=== PATIENT | male | born 1975 | race Caucasian/White ===

== ENCOUNTER → 2016-03-12 | Outpatient (CLI) | payer BC, OTHER ==
[~2016-03-12] VITALS: Ht 180.3 cm; Wt 132.5 kg
[~2016-03-12] MED LIST: LISI-461 PO; OXYC1TAB3 PO
[2016-03-12 15:09] VITALS: BP 125/86; PULSE 73; Ht 180.3 cm; Wt 132.5 kg
== END | disposition home or self-care (01) ==
LOC: C.NEUR 14:47
PROVIDERS: ATTEND Family Medicine
DX: G47.33 Obstructive sleep apnea (adult) (pediatric) (principal); E66.9 Obesity, unspecified; G47.00 Insomnia, unspecified

== ENCOUNTER → 2016-12-03 | Outpatient (CLI) | payer OTHER, BC ==
[~2016-12-03] MED LIST changes: -OXYC1TAB3 PO
--- NOTE | 2016-12-03 12:28 | DIAGNOSTIC IMAGING REPORT ---
LEFT FOURTH FINGER 3 VIEWS CLINICAL HISTORY: Left fourth finger pain status post trauma COMPARISON: None. DISCUSSION: No fractures or dislocations are visualized. IMPRESSION: No fractures identified. Electronically signed by: Chance Mccain M.D. 12/03/2016 12:26 PM Dictated Date/Time: 12/03/2016 12:25 PM
== END | disposition home or self-care (01) ==
LOC: C.RAD1850 11:54
PROVIDERS: ATTEND Nurse Practitioner Adult Health
DX: M79.645 Pain in left finger(s) (principal)

== ENCOUNTER → 2017-03-17 | Outpatient (CLI) | payer OTHER ==
[~2017-03-17] VITALS: Ht 180.3 cm; Wt 107.0 kg
[2017-03-17 16:03] VITALS: BP 136/86; PULSE 62; Ht 180.3 cm; Wt 107.0 kg
== END | disposition home or self-care (01) ==
LOC: C.NEUR 13:42
PROVIDERS: ATTEND Physician Assistant
DX: G47.33 Obstructive sleep apnea (adult) (pediatric) (principal)

== ENCOUNTER → 2017-03-21 | Outpatient (CLI) | payer OTHER ==
--- NOTE | 2017-03-22 07:46 | PAP/PSG TECHNICIAN REPORT ---
[facility] Docking Saw Operator Polysomnogram Report Study name: None Report date: 03/22/2017 Study date: 03/21/2017 Referring Physician: DR. PASTRANA Name: ERWIN LEZAMA Interpreting Physician: Shayla Date of : 1975 Docking Saw Operator: Janeth Cabral, PSGT. Sex: Male Age: 42 StudyType: PSG Weight: 0 lbs Height: 42 years, Height 5' 11" Neck Circum:17 inches BMI: Medications: Atrovastatin Calcium 20 mg, Lisinopril 20 mg, Zolpidem Tartrate 10 mg. Patient History 42 YR. MALE PRESENTS TO THE SLEEP LAB FOR A SPLIT NIGHT STUDY >7. PATIENT STATES PAULINA HE IS POST BYPASS SURGERY -67 LBS. HE IS ON A RATE OF 8 CM WITH NASAL PILLOWS.PATIENT STATES THAT HE FEELS THE PRESSURE IS TO HIGH CAUSING HIS MOUTH TO"BLOW OPEN", HIS GOAL IS TO LOSE ENOUGH WEIGHT TO "GET OFF THE C-PAP. Parameters Monitored NPSG: E1-M2, E2-M1, Fp1-M2, Fp2-M1, F3-M2, F4-M2, F4-M1, C3-M2, C4-M2, C4-M1, O1-M2, O2-M2, O2-M1, T3-M2, T4-M1, P3-M2, P4-M1, CHIN1, CHIN2, HR, EKG, Legs, PFLOW, SNOR, FLOW, CFLOW, Tidal Volume, THOR, ABDO, SpO2, PLTH, CPRESS, ETCO2 Wave, ETCO2, pH Sleep Architecture Sleep Stages Time at Lights Off 8:50:44 PM STAGES Time (min.) TST (%) Time at Lights On 5:20:44 AM Wake 39.5 -- Total Recording Time (TRT) 511.50 min. N1 5.0 1 Total Sleep Period (TSP) 480.0 min. N2 268.0 57 Total Sleep Time (TST) 470.5min. N3 49.0 10 Awake Time 41.0 min. REM 148.5 32 Wake after Sleep Onset 9.5 min. Sleep Efficiency (SE) 92 % Sleep Onset Latency (RC) 30.0 min. Number of Stage 1 Shifts None Awakenings 3 Stage Changes 33 Number of REM periods 9 REM 148.5 32 REM Latency 57.0 min. NREM 322.0 68 Body Position Analysis Supine Right Left Side Prone Vertical Total Sleep Time (min.) 171.8 215.9 103.5 319.36 0.0 0.0 Total Sleep Time (%) 32% 46% 22% 68 0% N/A% Total Sleep Time REM (min.) 25.4 75.5 47.6 None 0.0 0.0 Total Sleep Time NREM (min.) 125.7 140.4 55.8 None 0.0 0.0 Intermittent Wake (min.) 20.7 14.3 4.5 None 0.0 0.0 Total Sleep Period (%) 33% None None None None None Arousals Myoclonus (PLM) * Events Count Index Events Count Index Spontaneous 47 6 Events Awake (PLMW) 2 3.0 Respiratory 1 0.1 Events Asleep w/ Arousal (PLMA) 8 1.0 PLM 8 1 Events Asleep w/o Arousal (PLMS) 101 12.9 Snoring 3 0 Total Asleep 109 13.9 Total 59 8 Total 111 13 Respiratory Analysis * CA OA MA CH H RERA Total Count 0 0 0 0 18 0 18 Index 0.0 0.0 0.0 0 2.3 0 2.3 Mean Duration 0.0 0.0 0.0 0.00 18.3 0.0 18.3 Longest Duration 0.0 0.0 0.0 0.00 0.0 0.0 37.7 Respiratory Event Summary Total Supine ~Supine Right Left Prone REM NREM Apneas Count 0 0 0 0 0 N/A 0 0 Index 0.0 0 0 0.0 0.0 N/A 0 0 Hypopneas (4% Desat) Count 18 3 15 15 0 N/A 10 8 Index 2.3 1.2 3 4.2 0.0 N/A 4.0 1.5 Apneas & All Hypopneas Count 18 3 15 15 0 N/A 10 8 Index 2.3 1 3 4 0 N/A 4.0 1.5 Respiratory Events (Automatic Pinsetter Adjuster+All Hyp+RERA) Count 18 3 15 15 0 N/A 10 8 Index 2.3 1 3 4.2 0.0 N/A 4.0 1.5 Respiratory Related Arousal Count 1 3 0 0 0 N/A 0 1 Index 0.1 0 0 0 0 N/A 0 0 Snoring Analysis Supine Right Left Prone REM NREM Total Snore duration 15.9 min Snores count 36 630 23 N/A 92 597 689 Snore mean duration 1.4 Sec Snores index 14 175 13 N/A 37.2 111.2 87.9 TST with snoring (%) 3.4% Desaturation Event Summary: Minimum %SpO2 Event Count Mean/Min/Max Duration(sec.) Desaturation Index % Time In Bed > 90 25 25.7 / 9.0 / 58.0 3.2 93.6 86 - 90 9 20.6 / 9.0 / 44.5 20.2 5.3 81 - 85 1 15.3 / 15.3 / 15.3 10.0 1.2 76 - 80 0 N/A 0.0 0.0 71 - 75 0 N/A 0.0 0.0 66 - 70 0 N/A 0.0 0.0 61 - 65 0 N/A 0.0 0.0 56 - 60 0 N/A 0.0 0.0 51 - 55 0 N/A 0.0 0.0 < 50 0 N/A 0.0 0.0 Total REM NREM Awake <50% 0.0 min. 0.0 min. 0.0 min. 0.0 min. 51 - 60% 0.0 min. 0.0 min. 0.0 min. 0.0 min. 61 - 70% 0.0 min. 0.0 min. 0.0 min. 0.0 min. 71 - 80% 0.0 min. 0.0 min. 0.0 min. 0.0 min. 81 - 90% 32.7 min. 9.9 min. 20.5 min. 2.3 min. 91 - 100% 475.2 min. 138.1 min. 300.2 min. 36.9 min. Average 93 93 93 92 Minimum SpO2 79 85 79 89 Desaturation Event Index 3.3 6.5 2.2 0.0 # Desat. Events below 89% 12 6 6 N/A Time(%) with Saturation below 89% 2.0 0.4 1.6 0.0 Time(min.) with Saturation below 89% 10.3 1.9 8.4 0.0 Time (mins) REM (mins) NREM (mins) % of TST SpO2 Below 90% 20 11 N9 2.7 SpO2 Below 88% 5 0 0 2 Heart Rate Analysis Min (bpm) Max (bpm) Average (bpm) Awake 53 92 72 NREM 48 127 61 REM 47 97 60 Overall 47 127 61 Supplemental O2 Values Minimum O2 level: None Value Start Time End Time Docking Saw Operator Comments PSG Study Mr. Lezama slept in the right, left, and supine positions. No cardiac arrhythmia or PLM's noted. No bruxism noted. Snoring was noted and scored as a 2 on a scale of 1 through 5. (0=no snoring, 5=snoring loud enough to be heard through a closed door or down the bautista way) Mr. Lezama awoke to use the restroom zero times during the night. Mr. Lezama stated, I did not sleep as well as I do when I am in my own bed. The final report will be interpreted and signed by a sleep physician. The completed physician report will then be placed in the patient medical record. Patient did not qualify for a split night study >7 AHI. Please note the oxygen sensor was half off the patient's finger epochs [id number].} Therapy (cm H2O) 0 TIB (min.) 510.0 TST (min.) 470.5 Sleep Onset (min.) 30.0 REM Onset From Sleep (min.) 57.0 Sleep Efficiency % 92 Wakefulness (%) 8 Wakefulness (min.) 41.0 NREM 1 (%) 1 NREM 1 (min.) 5.0 NREM 2 (%) 57 NREM 2 (min.) 268.0 NREM 3 (%) 10 NREM 3 (min.) 49.0 REM (%) 32 REM (min.) 148.5 # Arousals 59 Arousal Index 8 # Snore 689 Snore Index 87.9 AHI 2.3 AHI Supine 1 AHI Non-Supine 3 NREM AHI 1.5 REM AHI 4.0 RDI 2.3 # Obstructive Apnea 0 # Central Apnea 0 # Mixed Apnea 0 # Hypopneas 18 RERAs 0 Total Respiratory Events 18 Time Below SpO2 89% (min.) 10.3 Mean NREM SpO2 (%) 93 Mean REM SpO2 (%) 93 Mean Sleep SpO2 (%) 93 Min NREM SpO2 (%) 79 Min REM SpO2 (%) 85 Position Supine (min.) 171.8 Position Non-supine (min.) 319.4 LM Index Sleep 13.9 LM Index NREM 6.1 LM Index REM 30.7 Mean Heart Rate (bpm) 61 Min Heart Rate (bpm) 47
--- NOTE | 2017-03-22 16:13 | POLYSOMNOGRAPH REPORT ---
CLINICAL DATA: A 42-year-old male referred for a possible split night study. He had a previous history of sleep apnea and is on CPAP 8 cm water pressure, nasal pillows. It is causing his mouth to blow open. His goal is to get off the CPAP. He has lost over 67 pounds since gastric bypass surgery. SLEEP ARCHITECTURE: Total sleep period was 480 minutes. Total sleep time was 470.5 minutes divided between 322 minutes of non-REM sleep and 148.5 minutes of REM sleep. Sleep onset latency was 30 minutes. REM latency was 57 minutes. Sleep efficiency was 92%. Wake after sleep onset was 9.5 minutes. Sleep consisted of stage N1 1%, stage N2 57%, stage N3 10%, and REM 32%. AROUSAL DATA: 59 arousals were recorded for an index of 8 per hour. PLM DATA: 109 limb movements during sleep were noted for an index of 13.9 per hour with arousal index of 1 per hour. RESPIRATORY DATA: The AHI was 2.3. There were 18 hypopneic episodes with the mean duration of 18.3 seconds. OXIMETRY DATA: Nocturnal hypoxemia was seen. Oxygen amira was 79% during non-REM sleep. The mean saturation was 93%. Time below 88% was 5 minutes. EKG: Heart rates ranged from 48-127 beats per minute. No arrhythmias were noted. MICROSOFT OFFICE INSTRUCTOR'S COMMENTS: The patient slept in the right, left, and supine positions. Snoring was mild rated 2 on a scale of 1-5. IMPRESSION: No evidence of clinically significant sleep apnea/hypopnea or sustained nocturnal hypoxemia with an AHI of 2.3. RECOMMENDATIONS: The patient will be seen back for followup. At this point, it appears that he can go off of CPAP therapy. MECCA
== END | disposition home or self-care (01) ==
LOC: C.NEUR 20:00
PROVIDERS: ATTEND Physician Assistant
DX: G47.33 Obstructive sleep apnea (adult) (pediatric) (principal)

== ENCOUNTER 2023-12-08 05:56 | Observation (INO) ==
--- NOTE | 2023-11-28 10:31 | Anesthesiology Consultation ---
Date of Service November 28, 2023 Assessment & Plan (1) Encounter for pre-operative examination: Infectious disease screening: Per assessment on 11/28/23: No known recent infectious disease contacts or current infectious disease symptoms. Chart Review Chart Review: Acceptable Risk for Surgery and Patient NOT seen in Pre Admission Testing History Surgery Operation Date: 12/08/23 07:30 Proposed Procedures p Robotic assisted Laparoscopic Partial Nephrectomy Left - Ranulfo Fong DO Height/Weight Height: 5 ft 11 in Weight: 88.451 kg Allergies Allergy/AdvReac Type Severity Reaction Status Date / Time No Known Allergies Allergy Verified 11/28/23 07:33 Medications Home Medications Medication Instructions Recorded Confirmed Last Taken semaglutide (weight loss) 2.4 2.4 mg subcut Q7D 06/28/23 11/28/23 Unknown mg/0.75 mL subcutaneous pen injector (Jeanie) cholecalciferol (vitamin D3) 50 50 mcg PO DAILY 09/02/23 11/28/23 Unknown mcg (2,000 unit) capsule cyanocobalamin (vitamin B-12) 1,000 mcg IM MONTHLY 09/02/23 11/28/23 Unknown 1,000 mcg/mL injection solution omeprazole 40 mg capsule,delayed 40 mg PO HS 09/02/23 11/28/23 Unknown release tadalafil 5 mg tablet 5 mg PO HS 09/02/23 11/28/23 Unknown zolpidem 10 mg tablet (Ambien) 10 mg PO HS 09/02/23 11/28/23 Unknown alfuzosin 10 mg tablet,extended 10 mg PO HS 11/28/23 11/28/23 Unknown release 24 hr finasteride 5 mg tablet 5 mg PO QAM 11/28/23 11/28/23 Unknown Past Medical History Medical History (Updated 11/28/23 @ 10:32 by Angelica Cabral) BPH w urinary obs/LUTS GERD (gastroesophageal reflux disease) H/O hyperlipidemia H/O: hypertension "resolved" History of COVID-2020 History of obstructive sleep apnea No mention on device Insomnia Left renal mass Obesity Past Family History Family History Brother Alcohol abuse Brother Alcohol abuse Denies family history of Prostate cancer BPH w urinary obs/LUTS Bleeding disorder Bladder carcinoma Kidney carcinoma Past Surgical History Surgical History (Updated 11/28/23 @ 07:40 by Lizeth Puckett RN) History of colonoscopy History of shoulder surgery History of tooth extraction Hx of gastric bypass sleeve Hx of hernia repair x4 Hx of shoulder surgery left Social History Smoking Status: Former smoker Do You Dip or Chew Tobacco: No Smoking End Date: 20 yrs ago Hx Alcohol Use: No Hx Substance Use: No substance use type: does not use Lab Results Anesthesia Preop Results Results Anesthesia Widget: WBC 5.8 Thousand/uL (3.8-10.8) 11/17/23 Hgb 13.4 g/dL (13.2-17.1) 11/17/23 Hct 40.4 % (38.5-50.0) 11/17/23 Plt 306 Thousand/uL (140-400) 11/17/23 Na 140 mmol/L (135-146) 11/17/23 K 4.3 mmol/L (3.5-5.3) 11/17/23 Cl 105 mmol/L (98-110) 11/17/23 CO2 30 mmol/L (20-32) 11/17/23 BUN 13 mg/dL (7-25) 11/17/23 Creat 1.19 mg/dL (0.60-1.29) 11/17/23 Glucose Level 79 mg/dL (65-139) 11/17/23 Testing Laboratory Results Urine culture (11/17/23): no growth Electrocardiogram Date: 10/17/23 NSR at 74bpm. RBBB. Chest X-Ray Date: 10/17/23 FINDINGS: PA and lateral chest radiographs are compared to study dated 05/15/2008. A metallic BB in the left chest wall is unchanged dating back to 2008. The cardiomediastinal silhouette is unremarkable. The lungs and pleural spaces are clear. There is no pneumothorax. The bony thorax appears intact. IMPRESSION: No active disease in the chest.
[2023-12-08] MEDS ORDERED: ROCURONIUM BROMIDE 10 MG/ML 5 ML VIAL IV ONE ×2 (06:43→08:27)
[2023-12-08] MEDS: LR 15ML/HR IV SCH (06:43)
[2023-12-08] MEDS ORDERED: MIDAZOLAM HCL 1 MG/ML 2ML VIAL ONE (06:43)
[2023-12-08] MEDS ORDERED: PROPOFOL IV EMULSION 10 MG/ML 20 ML VIAL IV ONE ×5 (06:43→10:18)
[2023-12-08] MEDS ORDERED: LIDOCAINE 2% 2 ML VIAL/AMP(20MG/ML) INFIL ONE (06:43)
[2023-12-08] MEDS ORDERED: fentaNYL citrate PF 100 MCG/2 ML VIAL ONE ×2 (06:43→08:41)
[2023-12-08] MEDS ORDERED: DEXAMETHASONE SOD INJ 4 MG/ML VIAL ONE (06:43)
[2023-12-08] MEDS ORDERED: ONDANSETRON INJ 2 MG/ML 2 ML VIAL ONE (06:43)
[2023-12-08] MEDS ORDERED: DROPERIDOL 5 MG/2 ML VIAL IV PRN (07:02)
[2023-12-08] MEDS ORDERED: ATROPINE SULFATE 0.1 MG/ML 10ML SYR IV PRN (07:02)
[2023-12-08] MEDS ORDERED: ePHEDrine sulfate 50 MG/ML AMP IV PRN (07:02)
[2023-12-08] MEDS ORDERED: PROMETHAZINE HCL 6.25 MG in SODIUM CHLORIDE 0.9% 50 ML IV PRN (07:02)
[2023-12-08] MEDS ORDERED: HYDROmorphone INJ 2 MG/ML SYR/VIAL IV PRN (07:02)
--- NOTE | 2023-12-08 07:06 | History & Physical Report ---
Date of Service December 08, 2023 Assessment & Plan (1) Left renal mass: (2) BPH w urinary obs/LUTS: (3) Hypertension: (4) Hyperlipidemia: Plan Left Lower pole renal mass. Discussed Partial vs Radical nephrectomy and possible issues or reasons that partial nephrectomy may not be possible. Patient's overall cardiac health, pulmonary function, and overall health were assessed. Discussed patient's known chronic medical issues as well as the potential for unknown or undiagnosed underlying medical issues based on patient's age and gender especially related to cardiac and vascular disease. Discussed the potential effects on surgery and increased surgical risk related to his specific medical issues. Discussed control of medical issues improving overall outcomes and decreasing risk. Risks and benefits discussed at length for procedure. These include bleeding, infection, injury to surrounding tissues or organs, and risks associated with anesthesia. Patient states understanding and agrees to proceed. Will sign consent and proceed. Plan for left robot-assisted laparoscopic partial nephrectomy. History of Present Illness Primary Care Provider: Ajit Singleton Patient here for procedure. No changes in medical issues. No major changes in urinary issues. Continued issues and concerns. No change in pain or discomfort. No severe fevers or chills. No chest pain or shortness of breath. Risks and benefits discussed at length for procedure. These include bleeding, infection, injury to surrounding tissues or organs, and risks associated with anesthesia. Patient and/or family states understanding and agrees to proceed. Consent and supporting information completed. Allergies Allergy/AdvReac Type Severity Reaction Status Date / Time No Known Allergies Allergy Verified 12/08/23 06:22 Home Medications Medication Instructions Recorded Confirmed Type semaglutide (weight loss) 2.4 2.4 mg subcut Q7D 06/28/23 12/08/23 History mg/0.75 mL subcutaneous pen injector (Jeanie) cyanocobalamin (vitamin B-12) 1,000 mcg IM MONTHLY 09/02/23 12/08/23 History 1,000 mcg/mL injection solution omeprazole 40 mg capsule,delayed 40 mg PO HS 09/02/23 12/08/23 History release tadalafil 5 mg tablet 5 mg PO HS 09/02/23 12/08/23 History zolpidem 10 mg tablet (Ambien) 10 mg PO HS 09/02/23 12/08/23 History alfuzosin 10 mg tablet,extended 10 mg PO HS 11/28/23 12/08/23 History release 24 hr finasteride 5 mg tablet 5 mg PO QAM 11/28/23 12/08/23 History multivitamin 1 tab PO DAILY 12/08/23 12/08/23 History Past Med/Surg History Problem List (Updated 12/08/23 @ 07:05 by Ranulfo Fong DO) Left renal mass Encounter for pre-operative examination BPH w urinary obs/LUTS (Chronic) Weak urinary stream Insomnia Hypertension Hyperlipidemia Medical History GERD (gastroesophageal reflux disease) Obesity History of COVID-2020 Insomnia H/O hyperlipidemia H/O: hypertension "resolved" BPH w urinary obs/LUTS Left renal mass History of obstructive sleep apnea No mention on device Surgical History History of colonoscopy Hx of gastric bypass sleeve Hx of hernia repair x4 History of tooth extraction Hx of shoulder surgery left History of shoulder surgery Family History Brother , in 40's due to Alcoholism Alcohol abuse Brother , in 40's due to alcoholism Alcohol abuse Denies family history of Prostate cancer BPH w urinary obs/LUTS Bleeding disorder Bladder carcinoma Kidney carcinoma Social History Smoking Status: Former smoker Smoking End Date: 20 yrs ago; Second Hand Exposure: No; Do You Dip or Chew Tobacco: No; Tobacco Cessation Education Requested by Patient: No Hx Alcohol Use: No Hx Substance Use: No Preferred Language: Divehi Communication Ability: Effective Blow Mold Operator Required: No Beliefs That Will Affect Care: None Current Living Situation: Family Other Information That Helps Us Care for You: No Feels Safe at Home: Yes Safety Concerns: Feels Safe At This Time Assistive Devices: Glasses Assistive Devices Comment: partial bilat Review of Systems All systems reviewed & are unremarkable except as noted in HPI & below Physical Exam Physical Exam: General: Alert/Arousable. No Acute illness. . HEENT: Inspection normal. Normal inspection of face. Normal inspection of neck. Psychologic: Normal affect/No change in mentation. Respiratory: No use of accessory muscles. No respiratory changes or exacerbation or changes with tachypnea or dyspnea. Cardiovascular: No tachycardia Skin: [place] and Dry. No new rashes or visible lesions. Abdomen: Normal inspection. No guarding. Results & Data Vital Signs (Past 12 Hours) Vital Signs Temp Pulse Resp BP Pulse Ox O2 Del Method 12/08/23 06:21 36.7 C 69 20 115/93 96 Room Air PG Care Time/CCT Total # of Minutes Spent Total Time Spent with Patient: Total time spent is greater than 50% in coordination of care (as documented) at patient's floor/unit and/or counseling patient: Coding Level of Care Code None Diagnoses Left renal mass N28.89 BPH w urinary obs/LUTS N40.1; N13.8 Hypertension I10 Hyperlipidemia E78.5
[2023-12-08] MEDS ORDERED: KETAMINE HCL 10MG/ML SYR ONE (07:55)
[2023-12-08] MEDS: ceFAZolin 2000MG 2,000 MG/15 ML SYR IV SCH ×2 (08:23→17:57)
[2023-12-08] MEDS ORDERED: ePHEDrine sulfate 50 MG/5 ML SYR ONE (08:45)
[2023-12-08] MEDS ORDERED: GLYCOPYRROLATE 0.2 MG/ML VIAL ONE (08:45)
[2023-12-08] MEDS ORDERED: SUGAMMADEX SODIUM 200 MG/2 ML VIAL IV ONE (10:13)
[2023-12-08] MEDS: TISSEEL FIBRIN SEALANT 10ML TOP ONE (10:16)
[2023-12-08] MEDS: SURGICEL ABSORB HEMOSTAT 2IN X 14IN TOP ONE (10:16)
[2023-12-08] MEDS: BUPIVACAINE 0.5 % 5 MG/1 ML MPF 30ML VIAL ONE (10:16)
[2023-12-08] MEDS: FLOSEAL HEMOSTATIC MATRIX 10ML TOP ONE (10:16)
--- NOTE | 2023-12-08 10:37 | Operative Report ---
PG Post Operative Report Pre & Post Diagnosis Operation Date: 12/08/23 07:30 Pre-Op Diagnosis: Left Renal Mass, Renal Lesion Post-Op Diagnosis: Left Renal Mass, Renal Lesion I identified the patient and participated in the time-out.: Yes Procedure Operation Date: 12/08/23 07:30 Actual Procedures p Robotic Assisted Laparoscopic Partial Nephrectomy with extensive lysis of adhesions - Left(Left) - Ranulfo Fong DO Surgeon Ranulfo Fong, II, DO Body Press Operator JEREL Karimi. Jordan Baker MD Estimated Blood Loss 50 Findings Consistent with Post-Op Diagnosis Lower pole renal mass on left Significant adhesions of omentum to abdominal mesh/previous surgery. Approx 25 min for lysis of adhesions in order to place ports. Specimens Left Renal mass. Drains 18 Pina catheter. Anesthesia Type General Complications none Disposition Disposition: Recovery Room Indications Patient with enhancing left renal mass. Risk and benefits were discussed at length. Patient elected to undergo robotic assisted laparoscopic partial nephrectomy. Description of Procedure The patient was brought to the operative suite and placed under general endotracheal intubation anesthesia in the supine position. The patient was transferred to the lateral position with the operative side up. At this point, the patient prepped and draped in the usual sterile fashion and a timeout was completed. Preoperative antibiotics of Ancef 2 grams had been given. KENTON's and SCD's were placed on the patient's lower extremities. A catheter was placed using sterile technique. With the time out completed the patient was flexed and the skin was marked. The lateral robotic camera port site was anesthetized. A small incision was made into the skin and subcutaneous tissues. A Varess needle was selected and placed. The needle was easily moved and it was irrigated and aspirated without any issues or concerns for placement. Insufflation commenced. Once insufflated, A camera port was placed. The cavity was insufflated to 12-15 mmHG. A laparoscopic camera was placed and the abdominal cavity inspected. No bleeding, injury, or other concerning features were noted. At this point, the skin was marked for port placement and 8mm working ports were placed. The skin was anesthetized down to fascia and an approx 1cm incision was made to place the 2 x 8mm ports. Extensive adhesions were noted along the midline of the abdomen likely coming from previous abdominal repair. Numerous adhesions were lysed using blunt di ssection. The adhesions all came from the omentum to the umbilical area. Approx 25 minutes to free the thick adhesions. No bowel or other issues. Two therapeutic assistant ports were also placed in similar fashion under direct visualization. The robot was positioned and docked. The camera was placed and all trocars were positioned under direct visualization. Daphne Lara was integral in port placement, camera utilization, and docking procedure. She remained in sterile attire and then proceeded to assist the remainder of the case. Dr. Jordan Baker was readily available for assistance during cobb portions of the proceeding procedure. Dr. Baker assumed the industrial hire sales assistant role for the major portion of mass removal, vessel clamping, and closure of the kidney. At this point, I transitioned to the robotic console. The colon was mobilized medially to expose the retroperitoneum and the area assessed. Additional Adhesions were freed to allow mobilization. A small amount of adhesions were noted from the colon and were freed. These were dissected with blunt technique. Cautery was used to assist dissection and control bleeding. The retroperitoneal fat was assessed. The ureter and gonadal vein were identified. The ureter was isolated and dissection was taken superiorly. This was followed to the renal pelvis. The Renal Artery and Vein were then cleaned and exposed. Clamp placement was assessed and good access was achieved. The perirenal fat anterior to the kidney was then dissected. The mass and surrounding tissues were exposed. The kidney was then further mobilized. The ultrasound probe was placed and the mass further examined. The edges were marked. The Vessels were assessed a final time. 1 x Bulldog clamps were placed on the artery and 1 x Bulldog clamp on the vein. The kidney appropriately blanched. The previously marked margins were used to start the incision into the kidney. The mass was completely excised without evidence of penetrating into the capsule of the mass. The base of resection bed was assessed and small vessels were cauterized. The collecting system did not appear to be opened in any area. A barbed suture was selected and the nephrotomy closed. Care was taken to close the deep layers. 3-0 Vicryl sutures were then used to close the edges of the elliptical opening. A total of 4 vicryl sutures were used to close and bolster the edges. At this point, the bulldog clamps were removed. Warm ischemia time, in total, was 15 minutes. The kidney was full assessed after removal of clamps. No bleeding or other major areas of concern. WeMatt clips were used to bolster and tightened to approximate the edges. Surgicel hemostatic agent sheets were placed under the kidney and on the incised edge. Hemostatic agents were also placed. Hemostatic agent was also placed on the vessels. No major bleeding or other issues. Gerota's tissues were replaced utilizing A barbed suture and clips to cover the area. The excised mass was placed in an endocatch bag for removal. The entire dissection space was inspected one final time. No bleeding or injuries or areas of concern were noted. No tumor or other concerning features were noted. At this point, the robot was undocked and moved away from the patient. The port sites were all assessed laparoscopically. The endoscopic bag was moved into the lower therapeutic assistant port. The 12 mm superior therapeutic assistant port site were closed with the Robert Braden device. The other ports were assessed and no issues observed. The inferior therapeutic assistant port incision was opened further exposing fascia which was then opened in order to removed the mass within the bag. A running 1-0 PDS suture was used to close fascia. The skin at each site was closed with a stapling device. The area was cleaned and bandages placed on each incision. The patient was cleaned and bandaged. The patient was moved back into the supine position The patient was cleaned, aroused from anesthesia, and transferred to the pacu in stable condition having tolerated the procedure well with no complications. I was present and participated in all aspects of the procedure. Jordan Baker MD was integral in the major portion of the procedure as above. JEREL Karimi was critical in the portions as mentioned above. Will plan to observe postoperatively and monitor. Pina to be removed in the morning. Followup in approx 1-2 weeks for staple removal and pathology I attest to the content of the Intraoperative Record and any orders documented therein. Any exceptions are noted below.
[2023-12-08 11:11] LABS: Basophils # (auto) 0.04 K/uL (0.00-0.20); Basophils % (auto) 0.6 %; Eosinophils # (auto) 0.13 K/uL (0.00-0.50); Hematocrit (blood only) 40.1 % (42.0-52.0); Hemoglobin 13.1 g/dl (14.0-18.0); Immature Granulocytes # (auto) 0.02 K/uL (0.01-0.20); Immature Granulocytes % (auto) 0.3 %; Lymphocytes % (auto) 6.2 %; Mean Corpuscular Hemoglobin 28.9 pg (25.0-34.0); Mean Corpuscular Hgb Conc 32.7 g/dL (32.0-36.0); Mean Corpuscular Volume 88.3 fL (80.0-100.0); Mean Platelet Volume 8.9 fL (9.4-12.4); Monocytes # (auto) 0.13 K/uL (0.11-0.59); Neutrophils # (auto) 5.71 K/uL (1.40-6.50); Neutrophils % (auto) 88.9 %; Platelet Count 231 K/uL (130-400); RDW Coefficient of Variation 13.7 % (11.5-14.5); RDW Standard Deviation 44.5 fL (36.4-46.3); Red Blood Count 4.54 M/uL (4.70-6.10); White Blood Count 6.43 K/ul (4.8-10.8)
[2023-12-08 11:26] LABS: BUN Creatinine Ratio 12.2 (10-20); Calcium 8.8 mg/dl (8.6-10.3); Creatinine Clr Calc Pharmacy 84.5 ml/min; Potassium 4.5 mmol/L (3.5-5.1)
--- NOTE | 2023-12-08 11:30 | Anesthesiology Progress Note ---
Date of Service December 08, 2023 Anesthesia Post Procedure Vital Signs Vital Signs: Temp Pulse Resp BP Pulse Ox O2 Del Method O2 Flow Rate 12/08/23 11:15 36.3 C L 85 16 111/78 97 Room Air 12/08/23 11:05 88 16 113/77 97 Room Air 12/08/23 10:55 85 12 109/77 100 Oxymask 4 12/08/23 10:45 36.1 C L 83 13 103/71 99 Oxymask 6 12/08/23 06:21 36.7 C 69 20 115/93 96 Room Air Transfer of Care Handoff Completed per policy Notes Mental Status: alert / awake / arousable and participated in evaluation Nausea / Vomiting: adequately controlled Pain: adequately controlled Airway Patency, RR, SpO2: stable & adequate BP & HR: stable & adequate Hydration State: stable & adequate Anesthetic Complications: no major complications apparent and Pt Satisfied with anesthetic care
[2023-12-08] MEDS ORDERED: oxyCODONE HCL IR 5 MG TAB (IMMEDIATE RELEASE) PO PRN (11:43)
[2023-12-08] MEDS: LACTATED RINGER'S 1,000 ML IV SCH (12:24)
[2023-12-08] MEDS: MoRPHine SULFATE 2 MG/ML CARP IV PRN (12:24)
[2023-12-08] MEDS: MoRPHine SULFATE 4 MG/ML 1 ML CARP\\VIAL IV PRN (15:16)
[2023-12-08] MEDS: oxyCODONE HCL IR 5 MG TAB (IMMEDIATE RELEASE) PO PRN (16:10)
[2023-12-08] MEDS: HEPARIN SOD 5,000 UNIT/0.5 ML VIAL SQ SCH (20:29)
[2023-12-08] MEDS: DOCUSATE SODIUM 100 MG CAP PO SCH (20:29)
[2023-12-08] MEDS: ONDANSETRON INJ 2 MG/ML 2 ML VIAL IV PRN (20:29)
[2023-12-08] MEDS: PANTOprazole 40 MG TAB PO SCH (20:35)
[2023-12-08] MEDS: TAMSULOSIN HCL 0.4 MG CAP PO SCH (20:35)
[2023-12-08] MEDS: ZOLPIDEM TARTRATE 5 MG TAB PO SCH (22:35)
[2023-12-09 07:44] LABS: Basophils # (auto) 0.02 K/uL (0.00-0.20); Basophils % (auto) 0.2 %; Hematocrit (blood only) 34.7 % (42.0-52.0); Hemoglobin 11.8 g/dl (14.0-18.0); Immature Granulocytes # (auto) 0.06 K/uL (0.01-0.20); Immature Granulocytes % (auto) 0.5 %; Lymphocytes # (auto) 0.61 K/uL (1.20-3.40); Lymphocytes % (auto) 5.1 %; Mean Corpuscular Hemoglobin 29.5 pg (25.0-34.0); Mean Corpuscular Volume 86.8 fL (80.0-100.0); Mean Platelet Volume 9.1 fL (9.4-12.4); Monocytes # (auto) 0.72 K/uL (0.11-0.59); Neutrophils # (auto) 10.63 K/uL (1.40-6.50); Neutrophils % (auto) 88.2 %; Platelet Count 250 K/uL (130-400); RDW Standard Deviation 44.8 fL (36.4-46.3); White Blood Count 12.04 K/ul (4.8-10.8)
[2023-12-09 07:49] LABS: BUN Creatinine Ratio 11.7 (10-20); Calcium 8.3 mg/dl (8.6-10.3); Creatinine Clr Calc Pharmacy 86.6 ml/min; Potassium 4.2 mmol/L (3.5-5.1)
--- NOTE | 2023-12-09 12:56 | Urology Progress Note ---
Date of Service December 09, 2023 Assessment & Plan (1) Left renal mass: Plan -POD #1 s/p Robotic Assisted Laparoscopic Left Partial Nephrectomy with extensive lysis of adhesions with Dr. Fong -Feeling well, progressing as expected -Afebrile with stable vitals -Labs reviewed and stable hemoglobin 11.8, WBC 12.04, creatinine 1.2 -Pina draining appropriately, urine is clear yellow -Incisions appropriate Plan: -Remove Pina catheter and monitor for void -Advance diet as tolerated -Encourage ambulation -Continue supportive care and pain management as needed -Will reassess this afternoon -Anticipate discharge home later today or tomorrow pending patient progression Admission and Anticipated Discharge Date Admission Date: December 08, 2023 Subjective Follow-up POD #1 s/p robotic partial nephrectomy Pt seen at bedside this AM Awake and resting in bed on arrival No acute distress Reports some mild abdominal discomfort He reports some nausea/vomiting last night Tolerated clear liquid diet this morning without nausea or vomiting Some belching, no flatus Denies fever or chills Pina draining clear yellow urine Incisions appropriate Review of Systems Constitutional: as per Subjective / HPI Gastrointestinal: as per Subjective / HPI Genitourinary: + as per Subjective / HPI Physical Exam Constitutional: no acute distress Respiratory: no respiratory distress and no labored breathing Gastrointestinal (Abdomen): Incisions appropriate, baldo intact. Gauze dressing in place. No drainage. Abd soft. Mild tenderness with palpation. Musculoskeletal: Head/Neck/Chest: normocephalic Skin: Warm and dry Neurologic: moves all extremities and awake Psychiatric: A+Ox3, euthymic affect Genitourinary: Pina intact Results & Data Vital Signs (Past 12 Hours) Vital Signs Temp Pulse Pulse Resp BP BP Pulse Ox 12/09/23 11:26 36.7 C 75 16 115/76 93 12/09/23 07:27 36.6 C 71 16 113/72 95 12/09/23 03:41 36.6 C 80 16 110/74 94 O2 Del Method 12/09/23 11:26 Room Air 12/09/23 07:27 Room Air 12/09/23 03:41 Room Air PG Care Time/CCT Total # of Minutes Spent Total Time Spent with Patient: Total time spent is greater than 50% in coordination of care (as documented) at patient's floor/unit and/or counseling patient: Coding Level of Care Code None Diagnoses Left renal mass N28.89
[2023-12-10] MEDS: MoRPHine SULFATE 2 MG/ML CARP IV PRN (04:01)
[2023-12-10 07:11] LABS: Basophils # (auto) 0.04 K/uL (0.00-0.20); Basophils % (auto) 0.5 %; Eosinophils # (auto) 0.07 K/uL (0.00-0.50); Eosinophils % (auto) 0.8 %; Hematocrit (blood only) 34.7 % (42.0-52.0); Hemoglobin 11.4 g/dl (14.0-18.0); Immature Granulocytes # (auto) 0.02 K/uL (0.01-0.20); Immature Granulocytes % (auto) 0.2 %; Lymphocytes # (auto) 0.56 K/uL (1.20-3.40); Lymphocytes % (auto) 6.6 %; Mean Corpuscular Hemoglobin 28.9 pg (25.0-34.0); Mean Corpuscular Hgb Conc 32.9 g/dL (32.0-36.0); Mean Corpuscular Volume 88.1 fL (80.0-100.0); Mean Platelet Volume 9.2 fL (9.4-12.4); Monocytes # (auto) 0.64 K/uL (0.11-0.59); Monocytes % (auto) 7.5 %; Neutrophils % (auto) 84.4 %; Platelet Count 224 K/uL (130-400); RDW Coefficient of Variation 13.9 % (11.5-14.5); RDW Standard Deviation 45.1 fL (36.4-46.3); Red Blood Count 3.94 M/uL (4.70-6.10); White Blood Count 8.53 K/ul (4.8-10.8)
[2023-12-10 07:23] LABS: BUN Creatinine Ratio 11.9 (10-20); Calcium 8.4 mg/dl (8.6-10.3); Creatinine Clr Calc Pharmacy 77.5 ml/min; Potassium 4.3 mmol/L (3.5-5.1)
[2023-12-10 07:34] VITALS: RESP 16; TEMP 99.1; O2SAT 94
[2023-12-10] MEDS: ACETAMINOPHEN 325 MG TAB PO PRN (09:20)
--- NOTE | 2023-12-10 10:34 | Urology Progress Note ---
Date of Service December 10, 2023 Assessment & Plan (1) Left renal mass: Plan Recovering appropriately s/p partial nephrectomy on 12/08/2023. Lab work all reassuring this morning. He has been able to void on his own. He is tolerating a diet and has been ambulating. Main issue at this point is pain control. He is going to try to manage with oral medications today. If he does well with this, we will plan on discharge home this afternoon. Admission and Anticipated Discharge Date Admission Date: December 08, 2023 Subjective Feeling well s/p partial nephrectomy on 12/08/2023. Has been ambulating Has been able to void spontaneously without catheter Still having some abdominal pain, likely related to pneumoperitoneum and positioning as well as surgery Has required IV pain meds overnight. Tolerating a diet with no nausea or vomiting. Physical Exam Physical Exam: Well-appearing, NAD Abdomen soft, appropriate chaya-incisional tenderness Bandages in place with no strikethrough Results & Data Vital Signs (Past 12 Hours) Vital Signs Temp Pulse Resp BP Pulse Ox O2 Del Method 12/10/23 07:32 37.3 C 100 H 16 135/82 94 Room Air 12/10/23 05:00 37.4 C 92 H 15 147/93 H 93 Room Air PG Care Time/CCT Total # of Minutes Spent Total Time Spent with Patient: Total time spent is greater than 50% in coordination of care (as documented) at patient's floor/unit and/or counseling patient: Coding Level of Care Code None Diagnoses Left renal mass N28.89
--- NOTE | 2023-12-10 11:06 | Discharge Summary ---
Date of Service December 10, 2023 Admission HPI Per Admitting Provider This is a 48-year-old male followed by urology for a left-sided renal mass. He presented to the OR on 12/08/2023 for robot-assisted partial nephrectomy and was admitted postoperatively in good condition. Admission Exam Per Admitting Provider General: Alert in no acute distress. HEENT: Inspection normal Psychologic: Normal affect. Respiratory: Nonlabored. No use of accessory muscles. Skin: [place] and Dry. No rashes or visible lesions. Abdomen: Soft, nontender Principal Diagnosis Left renal mass, suspected malignancy Discharge Exam Well-appearing, NAD Abdomen soft, appropriate chaya-incisional tenderness Bandages in place with no strikethrough Discharge Data Allergies Allergy/AdvReac Type Severity Reaction Status Date / Time No Known Allergies Allergy Verified 12/08/23 06:22 Procedures Performed Operation Date: 12/08/23 07:30 Actual Procedures p Robotic Assisted Laparoscopic Partial Nephrectomy - Left(Left) - Ranulfo Fong DO Hospital Course (1) Left renal mass: He was admitted on 12/08/2023 after surgery. By 12/09, he was tolerating a diet, ambulating and his pain was well-controlled on medications. He was discharged home in good condition. Total Time Total Time Spent Total Time Spent (In Minutes): 15 Discharge Plan Discharge Items Patient Disposition: Home - Self-Care Reason For Visit: Left Renal Mass, Renal Lesion Discharge Diagnosis: Left renal mass Activity: Per Instructions section Lifting: No more than 25 pounds Bathing Comment: Okay to shower. No tub baths or soaks. Sexual Activity: Wait until after follow-up appointment Exercise/Sports: Wait until after follow-up appointment Driving/Machine Use: Do not drive if taking prescription pain medication. Non-emergency contact: Surgeon and Urologist Call non-emergency contact if: you have any medication questions, your symptoms worsen, your pain is not controlled, you have a fever, your wound has increased redness, your wound has increased drainage and your wound pain has increased Follow-up/Referrals: Ranulfo Fong DO [Physician] - 12/16/23 8:00 am Ajit Singleton [Primary Care Provider] - Diet: Low Fat Addtl Attending Provider Instructions: Please take all medications as prescribed and keep all follow-ups as scheduled. Please call our office at [phone] with any questions, concerns or need to reschedule appointments for any reason. We are happy to assist you. Recovering at home: We recommend having someone with you for the first few days after surgery to help care for you. It is okay to shower tomorrow. Please avoid swimming, bathing or using hot tub until incisions are well healed. Avoid driving until you are not requiring pain medication any further. Walk at least a few times a day. Increase your distance, as you feel able. Stairs in your home are okay. Please avoid strenuous or sexual activity until your follow-up. We recommend using stool softener (i.e. Colace) to prevent constipation and straining, especially the first two weeks post operatively. Call [facility] at [phone] if you experience: Chest pain or trouble breathing (call [phone] or go to the hospital). Fever of 101F or higher Symptoms of infection at incision site, including redness or swelling, warmth, or bad-smelling drainage Pain that is not controlled with medicines Pending Studies at Discharge: Yes (Pathology) Stand-Alone Forms: [facility] Recombine, Smoking Cessation Medications and DC Order Prescriptions: New oxycodone 5 mg tablet 5 mg PO Q6H PRN (Reason: pain) Qty: 10 0RF Rx Instructions: for acute post-surgical pain Continued zolpidem [Ambien] 10 mg tablet 10 mg PO HS omeprazole 40 mg capsule,delayed release(DR/EC) 40 mg PO HS cyanocobalamin (vitamin B-12) 1,000 mcg/mL solution 1,000 mcg IM MONTHLY Wegovy 2.4 mg/0.75 mL pen injector 2.4 mg subcut Q7D Patient Comments: takes on wednesdays, last dose on 10/26/23 > wanted to hold in case got in earlier for surgery tadalafil 5 mg tablet 5 mg PO HS Rx Instructions: up to 20 PRN intercourse finasteride 5 mg tablet 5 mg PO QAM alfuzosin 10 mg tablet extended release 24 hr 10 mg PO HS Rx Instructions: administer after the same meal each day multivitamin Tablet 1 tab PO DAILY Discharge Orders: Discharge Order (Routine); Ordered 12/10/23 Ordered By: Kiran Baker Admission Data Admit Date/Time: 12/08/23 10:38 Attending Provider: Ranulfo Fong Admit Provider: Ranulfo Fong Primary Care Provider: Ajit Singleton Coding Level of Care Code 78187 IN/OBS DISCH 30 MIN/LESS Diagnoses Left renal mass N28.89
[2023-12-10 12:22] VITALS: BP 110/74; PULSE 85
== END 2023-12-10 13:14 | disposition home or self-care (01) | DRG 658 ==
LOC: ASU 05:56 → 3W 10:38 → INTOOBSV 10:38